=== PATIENT | female | born 1985 | race Two or more races ===

== ENCOUNTER 2017-12-11 22:44 | Emergency (ER) | payer OTHER ==
[~2017-12-11] VITALS: Ht 165.1 cm; Wt 96.2 kg
[~2017-12-11 22:44] MED LIST: TUSSI-PRES LIQ118 ML PO
[2017-12-12] MEDS ORDERED: ORPHENADRINE C100 MG PO (03:58)
[2017-12-12] MEDS ORDERED: NEURONTIN300 MG PO (03:58)
== END 2017-12-12 04:13 | disposition home or self-care (01) ==
LOC: ER 22:44
DX: M54.5 Low back pain (principal)

== ENCOUNTER 2017-12-14 11:19 | Emergency (ER) | payer OTHER ==
[~2017-12-14] VITALS: Ht 165.1 cm; Wt 97.5 kg
[~2017-12-14 11:19] MED LIST changes: +NEURONTIN300 MG PO; +ORPHENADRINE C100 MG PO
[2017-12-14] MEDS ORDERED: PERCOCET 5-3251 EACH PO (14:00)
== END 2017-12-14 14:47 | disposition home or self-care (01) ==
LOC: ER 11:19
DX: M54.5 Low back pain (principal)

== ENCOUNTER 2018-06-27 13:29 | Emergency (ER) | payer OTHER ==
[~2018-06-27] VITALS: Ht 165.1 cm; Wt 97.5 kg
[~2018-06-27 13:29] MED LIST changes: +PERCOCET 5-3251 EACH PO
== END 2018-06-27 18:53 | disposition home or self-care (01) ==
LOC: ER 13:29
DX: M62.838 Other muscle spasm (principal); M54.2 Cervicalgia

== ENCOUNTER 2020-06-20 14:49 | Outpatient (CLI) | payer OTHER | END 2020-06-20 14:54 | disposition home or self-care (01) | LOC: ASH CLINIC 14:49 | PROVIDERS: ATTEND Emergency Medicine | DX: Z23 Encounter for immunization (principal); U07.1 COVID-19 ==

== ENCOUNTER 2020-07-25 13:18 | Inpatient (IN) | payer OTHER ==
[~2020-07-25] VITALS: Ht 165.1 cm; Wt 99.8 kg
[2020-07-25] MEDS ORDERED: TRILEPTAL300 MG PO (13:25)
--- NOTE | 2020-07-25 13:25 | NUR ---
SE RECIBE PACIENTE ALERTA Y ORIENTADA. PACIENTE REFIERE QUE SE CALLO EN LA CASA ESTA MANANA Y SE GOLPEO EL BRAZO RIDDHI.
--- NOTE | 2020-07-25 13:36 | NUR ---
SE RECIBE PACIENTE ALERTA Y ORIENTADA. PACIENTE REFIERE TENER DOLOR DE PECHO Y ABDOMEN Y ADORMECIMIENTO DEL BRAZO RIDDHI DESDE LAS 11:30 AM DEL CB DE HOY SE LE REALIZA EKG Y ES EVALUADO POR EL DR. CARLIE EDWARDS.
--- NOTE | 2020-07-25 14:16 | NUR ---
PTE EVALUADA POR EL DR SEXTON QUIEN ORDENA EL [place]. ORIENTADA POR MR Jayleen ALEX QUIEN REALIZA PRUEBAS DE LABORATORIO Y ADMINISTRA MEDICAMENTOS GIANLUCA ORDEN MEDICA Y SIGUIENDO MEDIDAS ASEPTICAS.
== END 2020-07-28 14:31 | disposition home or self-care (01) | DRG 311 ==
LOC: ER 13:18 → SURG 21:58
PROVIDERS: ADMIT Internal Medicine; ATTEND Internal Medicine
PROC: BW21ZZZ Computerized Tomography (CT Scan) of Abdomen and Pelvis (ICD-10-PCS; 2020-07-25)
PROC: B24BZZZ Ultrasonography of Heart with Aorta (ICD-10-PCS; principal; 2020-07-26)
DX: I24.9 Acute ischemic heart disease, unspecified (principal); R10.13 Epigastric pain; K76.0 Fatty (change of) liver, not elsewhere classified

== ENCOUNTER 2021-08-20 08:21 | Emergency (ER) | payer OTHER ==
[~2021-08-20] VITALS: Ht 165.1 cm; Wt 98.9 kg
[~2021-08-20 08:21] MED LIST changes: +TRILEPTAL300 MG PO
== END 2021-08-20 15:37 | disposition home or self-care (01) ==
LOC: ER 08:21
DX: K52.9 Noninfective gastroenteritis and colitis, unspecified (principal); Z20.822 Contact with and (suspected) exposure to COVID-19; Z88.6 Allergy status to analgesic agent; Z88.0 Allergy status to penicillin

== ENCOUNTER 2022-10-18 04:02 | Emergency (ER) | payer OTHER ==
[~2022-10-18] VITALS: Ht 165.1 cm; Wt 104.3 kg
[2022-10-18] MEDS ORDERED: PANTOPRAZOLE SO40 MG (04:12)
== END 2022-10-18 08:09 | disposition home or self-care (01) ==
LOC: ER 04:02
DX: R53.81 Other malaise (principal); R00.2 Palpitations; R06.02 Shortness of breath; R11.10 Vomiting, unspecified; Z88.0 Allergy status to penicillin; Z88.6 Allergy status to analgesic agent